=== PATIENT | male | born 1970 | race African-American/Black ===

== ENCOUNTER 2023-09-28 10:59 | Emergency (ER) | payer OTHER, SELFPAY ==
--- NOTE | ~2023-09-28 | XR_ITS ---
EXAMINATION: XR chest 2V DATE: 09/28/2023 11:24 INDICATION: Shortness of breath. TECHNIQUE: Frontal and lateral views of the chest were obtained. COMPARISON: None. FINDINGS: There is no pneumonia, pleural effusion, or pneumothorax. The heart size is normal. IMPRESSION: 1. No acute cardiopulmonary disease. Reviewed, dictated and finalized at location A.
[2023-09-28 11:05] VITALS: BP 140/88; PULSE 93; RESP 16; TEMP 36.4; O2SAT 100
[2023-09-28 11:12] VITALS: O2SAT 96
--- NOTE | 2023-09-28 11:12 | ECG_ITS ---
SEE SCANNED COPY FOR CONFIRMED REPORT. MTDD
[2023-09-28 11:13] VITALS: BP 137/89; PULSE 89; RESP 19; O2SAT 96
[2023-09-28 11:22] VITALS: PULSE 89
--- NOTE | 2023-09-28 11:38 | ED.SOB ---
HPI - SOB/Dyspnea General Chief Complaint: Shortness of Breath/Dyspnea Stated Complaint: SOB Time Seen by Provider: 09/28/23 11:12 Source: patient Mode of arrival: ambulatory Limitations: no limitations History of Present Illness HPI Narrative: Patient is a 53-year-old man who ED with report of shortness of breath. Patient reports over the last 2 weeks, he has had intermittent episodes of shortness of breath, states they are very brief episodes, occur at random times, described as though he cannot take a deep breath. He denies significant aggravating or alleviating factors. Denies aggravation with exertion. Denies any chest pain. Denies any recent cough or cold symptoms. Denies lower extremity pain or swelling. Denies any previous lung issues. Denies hx of anxiety. States his son recently in January of last year and his father is currently in the hospital and was given days to live. Related Data Allergies Allergy/AdvReac Type Severity Reaction Status Date / Time No Known Allergies Allergy Verified 10/28/22 15:06 Review of Systems Review of Systems: CONSTITUTIONAL: Denies fever, chills, or sweats. ENT: Denies rhinorrhea, congestion, sore throat. CARDIOVASCULAR: Denies chest pain, palpitations, or edema. RESPIRATORY: See HPI. MUSCULOSKELETAL: Denies back pain, extremity pain, myalgia. NEUROLOGIC: Denies headache, dizziness, numbness, or weakness. All systems reviewed & are unremarkable except as noted in HPI and below PMFSH Past Medical History Medical History Snoring Social History Social History Smoking status: Never smoker Second hand tobacco smoke exposure: No Alcohol intake: never Substance use: never Substance use type: does not use Living arrangements: with family Occupation/Education: occupation Gender identity (if verbalized by the patient): Male Sexual Orientation (if Verbalized by the Patient): Straight or Heterosexual Exam Narrative: GENERAL: Well appearing, obese with BMI 35.6, non-toxic, in no acute distress. HEAD: Normocephalic, atraumatic. RESPIRATORY: Airway patent, respirations nonlabored. Clear to auscultation bilaterally, no rales, rhonchi, wheezing. No focal lung sounds. CARDIOVASCULAR: Regular rate and rhythm without murmurs, rubs, or gallops. MUSCULOSKELETAL: Moves all extremities. No gross deformities. SKIN: Warm, dry, normal color. NEURO: A&O X3. Speech clear. Cranial nerves II-XII grossly intact. Steady gait. No ataxic movements. PSYCHIATRIC: Appropriate mood and affect. Normal interaction. Course Vital Signs Vital signs: Vital Signs Temperature 97.6 F 09/28/23 11:05 Pulse Rate 93 09/28/23 11:05 Respiratory Rate 16 09/28/23 11:05 Blood Pressure 140/88 09/28/23 11:05 Pulse Oximetry 100 09/28/23 11:05 Temperature 98.0 F 09/28/23 13:31 Pulse Rate 67 09/28/23 13:31 Respiratory Rate 18 09/28/23 13:31 Blood Pressure 124/73 09/28/23 13:31 Pulse Oximetry 100 09/28/23 13:31 Oxygen Delivery Room Air 09/28/23 11:12 MDM - SOB/Dyspnea MDM Narrative Medical decision making narrative: Patient presented to ED with 2 week history of intermittent sporadic shortness of breath. Denies any other associated symptoms. Vital signs are stable upon arrival. Oxygen stable on room air. Patient denying any current shortness of breath. Has had stress with family and his father currently being in the hospital/dying. He denies any chest pain. Denies exertional component. No evidence of DVT on exam. He is PERC negative, low suspicion for acute PE/DVT. No risk factors for this or ACS. No recent long distance travel, surgery, immobilization. No palpitations. EKG is without concerning ischemic changes. Troponin is negative. BNP is undetectable. Chest x-ray is clear. Remainder of basic laboratory st
[2023-09-28 12:38] LABS: Basophils Absolute Auto 0.1 K/mm3 (0.0-0.1); Basophils Percent Auto 0.8 % (0.2-1.2); Eosinophils Absolute Auto 0.2 K/mm3 (0-0.3); Eosinophils Percent Auto 3.5 % (0-4.4); Hematocrit 44.9 % (42.0-52.0); Hemoglobin 14.8 g/dL (14.0-18.0); Immature Granulocyte Absolute 0.03 K/mm3 (0.00-0.031); Immature Granulocyte Percent A 0.5 % (0-0.5); Lymphocytes Absolute Auto 1.47 K/mm3 (0.9-3.2); Lymphocytes Percent Auto 24.3 % (18.3-44.2); Mean Corpuscular Hemoglobin 27.6 pg (26-34); Mean Corpuscular Volume 83.6 fl (80-100); Mean Platelet Volume 10.5 fl (7.4-10.4); Monocytes Absolute Auto 0.6 K/mm3 (0.1-0.6); Monocytes Percent Auto 9.3 % (2.6-8.5); Neutrophils Absolute Auto 3.7 K/mm3 (1.3-6.7); Neutrophils Percent Auto 61.6 % (45.5-73.1); Platelet Count Result 285 k/mm3 (150-375); Red Blood Count 5.37 M/mm3 (4.6-6.20)
[2023-09-28 13:06] LABS: Alanine Aminotransferase 38 U/L (6-50); Albumin Level 4.5 g/dL (3.5-5.1); Alkaline Phosphatase 56 U/L (38-126); Anion Gap 5 mmol/L (4-12); Aspartate Amino Transferase 26 U/L (17-59); Bilirubin,Total 0.9 mg/dL (0.2-1.3); Blood Urea Nitrogen 15 mg/dL (9-20); Carbon Dioxide 30 mmol/L (22-30); Chloride 107 mmol/L (98-107); Estimated CRCL calculation 64 ml/min; Estimated Glomerular Filt Rate > 60; Glucose 71 mg/dL (65-110); Potassium 4.1 mmol/L (3.4-5.0); Sodium 142 mmol/L (137-145)
[2023-09-28 13:17] LABS: NT Pro B Type Natriuretic Pept < 20 pg/mL (19.9-100); Troponin I < 0.012 ng/mL (0.000-0.034)
[2023-09-28 13:31] VITALS: BP 124/73; PULSE 67; RESP 18; TEMP 36.7; O2SAT 100
== END 2023-09-28 13:30 | disposition home or self-care (01) ==
PROVIDERS: Emergency Provider Physician Assistant; PCP Family Medicine
DX: R06.02 Shortness of breath (principal)
CPT/HCPCS: 36415; 71046; 80053; 83880; 84484; 85025; 93005; 99284

== ENCOUNTER 2024-08-31 19:00 | Emergency (ER) | payer OTHER, SELFPAY ==
[2024-08-31] VITALS (9 sets, daily range): BP systolic 127–163; BP diastolic 93–114; PULSE 84–97; RESP 15–24; TEMP 36.2; O2SAT 98–99
--- NOTE | ~2024-08-31 | XR_ITS ---
CHEST RADIOGRAPH, PA AND LATERAL CLINICAL HISTORY: dizziness . COMPARISON: 09/28/2023 TECHNIQUE: PA and lateral views of the chest. FINDINGS The cardiomediastinal silhouette is unremarkable. Blunting of the right costophrenic sulcus suggesting a small right-sided pleural effusion (unchanged from prior). The remainder of the lungs are clear. IMPRESSION: Small right-sided pleural effusion, without focal infiltrate. Reviewed, dictated and finalized at location A.
--- NOTE | ~2024-08-31 | CT_ITS ---
History: Intermittent dizziness PROCEDURE: CT head without contrast. COMPARISON: 10/23/2018 TECHNIQUE: Axial imaging of the head performed from the skull base to the vertex without IV contrast. Sagittal a nd coronal reformations obtained. DLP: 681 mGy-cm FINDINGS: The ventricles are normal in size, shape and position. There is no mass, mass effect or midline shift. There is no abnormal extra-axial fluid collection or intracranial hemorrhage. Near-complete opacification of the left maxillary sinus, unchanged from 2019. Remaining paranasal sinuses are unremarkable. The mastoid air cells are well aerated. No acute displaced fractures within the overlying cranium. Impression: No acute intracranial hemorrhage or suspicious mass effect. Inflammatory sinus disease, unchanged from 2019. Reviewed, dictated and finalized at location A. Impression: No acute intracranial hemorrhage or suspicious mass effect. Inflammatory sinus disease, unchanged from 2019.
--- OUTSIDE RECORDS SUMMARY | 2024-08-31 19:01 | XMS_ITS | CONTINUITY OF CARE DOCUMENT ---
Author Name kelvin warren Address Unknown Organization [facility] Address [address] [place] [address] Phone [phone] Care Team Providers Care Facility Sales And Admin Name Role Phone kelvin warren Unavailable Unavailable
--- NOTE | 2024-08-31 19:19 | ECG_ITS ---
Test Date: 2024-08-31 19:26:57 Measurements Intervals [place] Rate: 85 P: 46 VT: 182 QRS: -4 QRSD: 103 T: 52 QT: 369 QTc: 440 Interpretive Statements SINUS RHYTHM DELAYED PRECORDIAL R/S TRANSITION BASELINE WANDER- V5 BORDERLINE ECG No previous ECG available for comparison Electronically Signed On 08-31-2024 20:25:19 CDT by Gareth Cedillo D.O.
[2024-08-31 19:39] LABS: Basophils Absolute Auto 0.1 K/mm3 (0.0-0.1); Basophils Percent Auto 0.7 % (0.2-1.2); Eosinophils Absolute Auto 0.3 K/mm3 (0-0.3); Eosinophils Percent Auto 4.1 % (0-4.4); Hematocrit 42.5 % (42.0-52.0); Hemoglobin 13.7 g/dL (14.0-18.0); Immature Granulocyte Absolute 0.04 K/mm3 (0.00-0.031); Immature Granulocyte Percent A 0.6 % (0-0.5); Lymphocytes Percent Auto 29.3 % (18.3-44.2); Mean Corpuscular HGB Conc 32.2 g/dl (32-36); Mean Corpuscular Hemoglobin 26.7 pg (26-34); Mean Corpuscular Volume 82.7 fl (80-100); Mean Platelet Volume 10.2 fl (7.4-10.4); Monocytes Absolute Auto 0.6 K/mm3 (0.1-0.6); Monocytes Percent Auto 8.2 % (2.6-8.5); Neutrophils Absolute Auto 4.1 K/mm3 (1.3-6.7); Neutrophils Percent Auto 57.1 % (45.5-73.1); Platelet Count Result 276 k/mm3 (150-375); Red Blood Count 5.14 M/mm3 (4.6-6.20); Red Cell Distribution Width 13.8 % (11.5-14.5); White Blood Count 7.2 K/mm3 (4.5-10.0)
--- OUTSIDE RECORDS SUMMARY | 2024-08-31 19:39 | XMS_ITS | CONTINUITY OF CARE DOCUMENT ---
Author Name kelvin warren Address Unknown Organization [facility] Address [address] [place] [address] Phone [phone] Care Team Providers Care Senior Editor Name Role Phone kelvin warren Unavailable Unavailable
--- NOTE | 2024-08-31 19:46 | ED_ITS ---
HPI - Dizziness General Chief Complaint: Dizziness Stated Complaint: intermittent dizziness x3 weeks Time Seen by Provider: 08/31/24 19:15 Source: patient Mode of arrival: ambulatory Limitations: no limitations History of Present Illness HPI Narrative: Patient reports with intermittent dizziness the past 3 weeks. He describes these as a lightheadedness. States he does not know if it is disequilibrium although he did feel off balance which caused her to stumble once or twice although not with all episodes. He denies any ear pain, hearing changes, or tinnitus. No slurred speech, unilateral motor or sensory symptoms, no altered mental status. He denies any falls or syncope. In general, episodes will last a few seconds. He has not seen his primary care physician Dr. Aubrey Aguayo for these episodes this time however when he had been feeling strangely before, Dr Aguayo thought he might be hypoglycemic. No official diagnosis of diabetes mellitus though he states when he was recently tested he he was noted to be pre-diabetic. He does state ever since that he can usually eat in his symptoms resolve. He did not eat when he had symptoms today. His last oral intake was a peanut butter and jelly sandwich at 3:30 a.m. this afternoon. He denies any alcohol or cigarettes. Patient denies any blurred or double vision. He denies taking any new medications/drugs. Has been compliant with his antihypertensive med. Patient states he would note symptoms while he was bowling but not particularly when he was actively pulling or bending over for a bowling ball. He also notes that his episodes have not been preceded by head movements changes in body position such as seated to standing or laying down to standing, etc.. He states for 2 of the episodes he briefly felt like the room was a nearly about this been although this has not been a component of most of these episodes. No nausea/vomiting associated with episodes. Related Data Allergies Allergy/AdvReac Type Severity Reaction Status Date / Time No Known Allergies Allergy Verified 08/31/24 19:00 [facility] Past Medical History Medical History Snoring Social History Social History Social History: Enjoys bowling Smoking status: Never smoker Second hand tobacco smoke exposure: No Alcohol intake: never Substance use: never Substance use type: does not use Living arrangements: with family Occupation/Education: occupation Gender identity (if verbalized by the patient): Male Sexual Orientation (if Verbalized by the Patient): Straight or Heterosexual Exam 2 Narrative: GENERAL: Well-appearing, well-nourished, and in no acute distress. HEAD: Normocephalic, atraumatic. EYES: Non injected, non icteric. Extraocular movements intact without entrapment. No horizontal or vertical nystagmus. ENT: Nares clear, no rhinorrhea or epistaxis. Bilateral tympanic membranes usually visualized without effusion, bulging, erythema or cerumen impaction. NECK: Supple. CHEST: Speaking in full sentences. No respiratory distress. HEART: Regular rate and rhythm. . ABDOMEN: Soft, nondistended. EXTREMITIES: Moves extremities x4. SKIN: Warm, dry, no rash. NEURO: No focal deficits. Alert and oriented x3. Speaks clearly without aphasia or dysarthria. No abnormal movements. PSYCH: Normal mood and affect. Course Vital Signs Vital signs: Vital Signs Temperature 97.2 F L 08/31/24 19:08 Pulse Rate 89 08/31/24 19:08 Respiratory Rate 16 08/31/24 19:08 Blood Pressure 132/93 H 08/31/24 19:08 Pulse Oximetry 98 08/31/24 19:08 Temperature 97.2 F L 08/31/24 19:08 Pulse Rate 91 08/31/24 20:34 Respiratory Rate 24 H 08/31/24 20:34 Blood Pressure 151/112 H 08/31/24 20:34 Pulse Oximetry 99 08/31/24 20:30 MDM - Dizziness MDM Narrative Medical decision making narrative: Exceedingly pleasant 54 yo male presents with intermittent dizziness that he describes as a lightheadedness. In the emergency department he is afebrile with acceptable vital signs, slightly elevated diastolic blood pressure. Patient's orthostatic vital signs show essentially no change in HR; SBP actually increases to compensate. He does not become symptomatic during this and has otherwise been asymptomatic while in the emergency department. His medications are reviewed and show that he is on an antihypertensive as well as sildenafil. He states there have been no dosage changes in these medications. It is possible that either of them were both of them are contributing to his episodes. Again, he also reports that previously attributed to hypoglycemia although his blood sugar was not checked during them. However, he would eat and experience resolution. Patient's hemoglobin A1c was 5.7% in June 2024 classifying him as prediabetic, so it is possible that he is experiencing transient hypoglycemia, though not currently on antiglycemic medications that would be exacerbating this. Otherwise has remained stable. Discussed work up with patient, including incidental findings on imaging. He will follow up with PCP. Otherwise stable for discharge. Differential Diagnosis Differential diagnosis: Likely adverse reaction to drug, benign paroxysmal positional vertigo, orthostatic hypotension, vertebral basilar insufficiency, cerebrovascular accident, acute vestibular neuronitis and transient cerebral ischemia Medical Records Attestation: I reviewed the patient's medical records. Medical records narrative: Hemoglobin A1c was 5.7% in June 2024. The he states he was told at that time that he was prediabetic and that there was also concern for his cholesterol although this was based on a nonfasting lab. Lab Data Attestation: I reviewed the patient's lab results. Lab results narrative: Hemoglobin with mild anemia however hematocrit is normal and hemoglobin is only a 0.5 drop from previous 08/31/24 19:32 08/31/24 19:32 Labs: Lab Results 08/31/24 Range/Units 19:32 WBC 7.2 (4.5-10.0) K/mm3 RBC 5.14 (4.6-6.20) M/mm3 Hgb 13.7 L (14.0-18.0) g/dL Hct 42.5 (42.0-52.0) % MCV 82.7 (80-100) fl MCH 26.7 (26-34) pg MCHC 32.2 (32-36) g/dl RDW 13.8 (11.5-14.5) % Plt Count 276 (150-375) k/mm3 MPV 10.2 (7.4-10.4) fl Immature Gran % (Auto) 0.6 H (0-0.5) % Neut % (Auto) 57.1 (45.5-73.1) % Lymph % (Auto) 29.3 (18.3-44.2) % [place] % (Auto) 8.2 (2.6-8.5) % Eos % (Auto) 4.1 (0-4.4) % Baso % (Auto) 0.7 (0.2-1.2) % Lymph # (Auto) 2.10 (0.9-3.2) K/mm3 [place] # (Auto) 0.6 (0.1-0.6) K/mm3 Eos # (Auto) 0.3 (0-0.3) K/mm3 Baso # (Auto) 0.1 (0.0-0.1) K/mm3 Abs Immat Gran (auto) 0.04 H (0.00-0.031) K/mm3 Absolute Neuts (auto) 4.1 (1.3-6.7) K/mm3 Absolute Nucleated RBC 0.000 (0.0-0.012) K/mm3 Nucleated RBC % 0.0 (0.0-0.2) % Sodium 140 (137-145) mmol/L Potassium 3.5 (3.4-5.0) mmol/L Chloride 107 (98-107) mmol/L Carbon Dioxide 25 (22-30) mmol/L Anion Gap 8 (4-12) mmol/L BUN 16 (9-20) mg/dL Creatinine 1.30 (0.7-1.3) mg/dL Estim Creat Clear Calc 63 ml/min Estimated GFR 57 L (59 - ) Glucose 102 (65-110) mg/dL Calcium 9.0 (8.4-10.2) mg/dL Total Bilirubin 0.7 (0.2-1.3) mg/dL AST 26 (17-59) U/L ALT 30 (6-50) U/L Alkaline Phosphatase 55 (38-126) U/L Total Protein 8.0 (6.3-8.2) g/dL Albumin 4.3 (3.5-5.1) g/dL Imaging Data Radiologist's impression: Impressions Chest X-Ray 08/31/24 20:12 IMPRESSION: Small right-sided pleural effusion, without focal infiltrate. Head CT 08/31/24 20:20 Impression: No acute intracranial hemorrhage or suspicious mass effect. Inflammatory sinus disease, unchanged from 2019. ECG Data EKG #1: Attestation: I personally reviewed and interpreted this ECG as follows: ECG completion date: 08/31/24 ECG completion time: 19:26 Interpretation: Normal sinus rhythm at a rate of 85 beats per minute. MI interval 182. QRS 103. QT/QTC 369/411. No T-wave inversions. Discharge Plan Discharge Clinical Impression: Dizziness, Episodic lightheadedness, Pleural effusion on right, Chronic sinusitis, unspecified Patient Disposition: Home, Self-Care Condition: Stable Instructions: Antibiotic Form, Sinusitis (ED), Pleural Effusion (DC), Lightheadedness (ED), Dizziness (ED) Additional Instructions: No clearly identifiable etiology for your symptoms. You did have evidence of a very small pleural effusion on the right side on your chest xray and chronic inflammation of your sinuses on your head CT. I did review the HA1c from your recent labs drawn by your physician which was 5.7%. As you stated, these symptoms may be related to transient hypoglycemia in this instance although unclear. Blood glucose was 102mg/dL today. Continue taking all of your medications as prescribed although discuss with Dr Aguayo if there is concern that your symptoms might be due to/exacerbated by one or both of them. Patient Language: Nepali Prescriptions: No Action sildenafil 50 mg tablet 50 mg PO DAILY PRN (Reason: erectile dysfunction) Qty: 30 3RF fosinopril 40 mg tablet 40 mg PO BID Qty: 180 2RF Follow-up/Referrals: Aubrey Aguayo MD [Primary Care Provider] - Stand Alone Forms: Work/School Release IP Time of Disposition: 20:48
[2024-08-31 19:54] LABS: Alanine Aminotransferase 30 U/L (6-50); Albumin Level 4.3 g/dL (3.5-5.1); Alkaline Phosphatase 55 U/L (38-126); Anion Gap 8 mmol/L (4-12); Aspartate Amino Transferase 26 U/L (17-59); Bilirubin,Total 0.7 mg/dL (0.2-1.3); Blood Urea Nitrogen 16 mg/dL (9-20); Carbon Dioxide 25 mmol/L (22-30); Chloride 107 mmol/L (98-107); Estimated CRCL calculation 63 ml/min; Estimated Glomerular Filt Rate 57; Glucose 102 mg/dL (65-110); Potassium 3.5 mmol/L (3.4-5.0); Sodium 140 mmol/L (137-145)
== END 2024-08-31 21:02 | disposition home or self-care (01) ==
PROVIDERS: Emergency Provider Student in an Organized Health Care Education/Training Program; PCP Family Medicine
DX: R42 Dizziness and giddiness (principal); J90 Pleural effusion, not elsewhere classified; J32.9 Chronic sinusitis, unspecified; R94.31 Abnormal electrocardiogram [ECG] [EKG]
CPT/HCPCS: 36415; 70450; 71046; 80053; 85025; 93005; 99284

== ENCOUNTER 2024-11-09 10:56 | Outpatient (CLI) | payer OTHER, SELFPAY ==
--- NOTE | ~2024-11-09 | XR_ITS ---
Right foot Technique: AP and lateral views were obtained. Clinical History: Pain Findings: No acute fracture or dislocation is seen. Osseous alignment is anatomic. Joint spaces are p reserved without erosive or degenerative change. Soft tissues are unremarkable. Impression: Unremarkable right foot radiographs. Reviewed, dictated and finalized at location . Impression: Unremarkable right foot radiographs.
== END 2024-11-09 10:57 | disposition home or self-care (01) ==
LOC: MICIMG 10:57
PROVIDERS: PCP Family Medicine; Visit Provider Student in an Organized Health Care Education/Training Program
DX: M79.676 Pain in unspecified toe(s) (principal)
CPT/HCPCS: 73620

== ENCOUNTER 2024-12-17 07:07 | Emergency (ER) | payer OTHER, SELFPAY ==
[2024-12-17 07:51] VITALS: BP 129/95; PULSE 62; RESP 18; TEMP 36.9; O2SAT 97
--- NOTE | 2024-12-17 07:51 | ED.GENADULT ---
HPI - General Adult General Chief complaint: Unspecified Stated complaint: i have hemorrhoids Time Seen by Provider: 12/17/24 07:38 Source: patient Mode of arrival: ambulatory Limitations: no limitations History of Present Illness HPI narrative: Patient presents with concern for a hemorrhoid. He states that for the last week when he wipes or defecating he feels a mass/lump. He denies there being any pain or tenderness. He has not noticed any bleeding or itching. Is sexually active with women. Denies any insertion of any object into his anus. He states that he has had decreased frequency of stools and that when he does so they are firm, i.e. he has been constipated. No blood in the stool. He has never had colonoscopy. States that his dad has hemorrhoids and he wanted this checked. He denies any fevers, chills, or weight loss. Related Data Allergies Allergy/AdvReac Type Severity Reaction Status Date / Time No Known Allergies Allergy Verified 11/09/24 10:05 [facility] Past Medical History Medical History Prediabetes Anxiety HTN (hypertension) Snoring Family History Family History Father Hemorrhoid Social History Social History Social History: Enjoys [employer] Smoking status: Never smoker Second hand tobacco smoke exposure: No Alcohol intake: never Substance use: never Substance use type: does not use Living arrangements: with family Occupation/Education: occupation Gender identity (if verbalized by the patient): Male Sexual Orientation (if Verbalized by the Patient): Straight or Heterosexual Exam Narrative: GENERAL: Well-appearing, well-nourished, and in no acute distress. HEAD: Normocephalic, atraumatic. EYES: Non injected, non icteric ENT: Nares clear, no rhinorrhea or epistaxis. Gross auditory acuity intact. NECK: Supple. No meningismus. CHEST: Speaking in full sentences. No respiratory distress. HEART: Regular rate and rhythm. . ABDOMEN: Soft, nondistended. Digital rectal exam performed with Jhoana VELEZ present as inspector general. Patient has a large external hemorrhoid from the 12 o'clock to 6 o'clock position otherwise nonthrombosed. No tenderness to palpation. Normal rectal tone. No rectal masses. EXTREMITIES: Normal range of motion. No lower extremity edema. SKIN: Warm, dry, no rash. NEURO: No focal deficits. Alert and oriented. Answering questions. Following commands. Normal speech without aphasia or dysarthria. PSYCH: Normal mood and affect. Course Vital Signs Vital signs: Vital Signs Temperature 98.4 F 12/17/24 07:51 Pulse Rate 62 12/17/24 07:51 Respiratory Rate 18 12/17/24 07:51 Blood Pressure 129/95 H 12/17/24 07:51 Pulse Oximetry 97 12/17/24 07:51 Temperature 98.4 F 12/17/24 07:51 Pulse Rate 62 12/17/24 07:51 Respiratory Rate 18 12/17/24 07:59 Blood Pressure 129/95 H 12/17/24 07:51 Pulse Oximetry 97 12/17/24 07:51 Medical Decision Making MDM Narrative Medical decision making narrative: Patient presents with concern for hemorrhoid. Over the past 1 week he is noticed/felt a lump/mass while wiping. He otherwise denies any itching, bleeding, or pain. He has never had a colonoscopy. He does note that he has been constipated with decreased frequency of stools and firmness of the stools when he does defecate. In the emergency department he is afebrile vital signs notable for an elevated diastolic blood pressure. Patient has a large but nonthrombosed external hemorrhoid. 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 I also advised him on drinking plenty of water, increasing fiber intake, a bowel regimen. Differential Diagnosis Differential Diagnosis: Hemorrhoids (external, internal, thrombosed, bleeding); rectal mass/malignancy; rectal prolapse Vital Signs Vital Signs: Vital Signs Temperature 98.4 F 12/17/24 07:51 Pulse Rate 62 12/17/24 07:51 Respiratory Rate 18 12/17/24 07:51 Blood Pressure 129/95 H 12/17/24 07:51 Pulse Oximetry 97 12/17/24 07:51 Temperature 98.4 F 12/17/24 07:51 Pulse Rate 62 12/17/24 07:51 Respiratory Rate 18 12/17/24 07:59 Blood Pressure 129/95 H 12/17/24 07:51 Pulse Oximetry 97 12/17/24 07:51 Discharge Plan Discharge Clinical Impression: External hemorrhoids, Constipation Patient Disposition: Home Condition: Stable Instructions: Antibiotic Form, Constipation (ED), Hemorrhoids (DC), High Fiber Diet (ED) Additional Instructions: Hemorrhoids may resolve spontaneously but can be worsened/caused by constipation so drink plenty of water and have a high-fiber diet and use the following bowel regimen to assist with that issue. Stool softener like fiber/psyllium/metamucil, supplemented with Miralax and, if needed a laxative (Magnesium citrate). Follow-up with your primary care physician. As we discussed, given your age, you should have a screening for colon cancer as recommended. Since you have never had one, the name of a GI doctor is listed below. Patient Language: Tongan Prescriptions: New Metamucil 3.4 gram/5.4 gram powder 1 tbsp PO DAILY Qty: 660 0RF Rx Instructions: mix into at least 8 oz of water or juice before administering polyethylene glycol 3350 [Miralax] 17 gram/dose powder 17 g PO DAILY Qty: 119 0RF magnesium citrate Solution 150 ml PO DAILY PRN (Reason: constipation) Qty: 296 0RF No Action methylprednisolone [Medrol (Rustam)] 4 mg tablets,dose pack See Rx Instructions PO PER PKG DIR Qty: 21 0RF Rx Instructions: PO PER PKG DIR for 6 days metoprolol succinate 50 mg tablet extended release 24 hr 50 mg PO DAILY Qty: 30 3RF sildenafil 50 mg tablet 50 mg PO DAILY PRN (Reason: erectile dysfunction) Qty: 30 3RF fosinopril 40 mg tablet 40 mg PO BID Qty: 180 2RF colchicine 0.6 mg tablet See Rx Instructions PO .COMPLEX Qty: 33 0RF Rx Instructions: orally; take 3 tablets the first day (2 tabs at once and 3rd tab 1 hr later) and then 1 tablet per day Follow-up/Referrals: Aubery Aguayo MD [Primary Care Provider] - Uriah Kelley MD [Physician] - (Gastroenterology) Stand Alone Forms: Work/School Release IP Time of Disposition: 08:56
[2024-12-17 07:59] VITALS: RESP 18
--- NOTE | 2024-12-17 08:09 | PC.NURSE ---
rectal exam at this time with Dr. Segal.
== END 2024-12-17 09:04 | disposition home or self-care (01) ==
PROVIDERS: Emergency Provider Student in an Organized Health Care Education/Training Program; PCP Family Medicine
DX: K64.4 Residual hemorrhoidal skin tags (principal); K59.00 Constipation, unspecified; F41.9 Anxiety disorder, unspecified; I10 Essential (primary) hypertension
CPT/HCPCS: 99283